=== PATIENT | male | born 1990 | race Two or more races ===

== ENCOUNTER 2018-11-11 19:23 | Emergency (ER) | payer OTHER ==
[2018-11-11 19:32] VITALS: BP 132/94
[2018-11-11] MEDS ORDERED: TDAP ADULT 0.5 ML INJ (BOOSTRIX) IM ONE (19:37)
--- NOTE | 2018-11-11 19:40 | EDPHY ---
H & P Time Seen by Provider: 11/11/18 19:30 HPI/ROS: CHIEF COMPLAINT: Right leg injury HISTORY OF PRESENT ILLNESS: Patient is a 28-year-old male who presents emergency department with a right leg injury yesterday. The patient was working on a compression spring on his car. It struck his lower thigh. He states he had mild bruising and swelling at that location. When he bends his knee he notices a slight bulge. Patient is able to ambulate. He has no numbness or tingling. REVIEW OF SYSTEMS: Negative Past Medical/Surgical History: Noncontributory Smoking Status: Never smoked Physical Exam: General Appearance: Alert and no distress. Head: Pupils equal. Normal. Respiratory: No respiratory distress. Cardiac: regular rate and rhythm. Extremities: Patient has mild bruising at the medial distal thigh. The muscle is soft. There is no signs of compartment syndrome. The patella is nontender. Patient has no bony tenderness palpation. He has full range of motion of his knee. He has no ligamentous instability. Leonard knee rules are negative. Full range of motion, normal appearing. Skin: No rashes or lesions. Neuro: Alert. Normal mood and affect. Constitutional: Initial Vital Signs Temperature (C) 36.6 C 11/11/18 19:31 Heart Rate 82 11/11/18 19:31 Respiratory Rate 16 11/11/18 19:31 Blood Pressure 132/94 H 11/11/18 19:31 O2 Sat (%) 97 11/11/18 19:31 O2 Delivery Mode Room Air Allergies/Adverse Reactions: No Known Allergies Allergy (Verified 11/11/18 19:30) Home Medications: Medication Instructions Recorded NK [No Known Home Meds] 11/11/18 Medical Decision Making ED Course/Re-evaluation: In the emergency department I discussed possible etiologies with the patient. I answered all his questions. I do not feel the patient needs x-ray imaging. I discussed with the patient. He was given warnings prior to leaving. He will return with worsening symptoms. He will continues icing compression. Differential Diagnosis: My differential includes but is not limited to fracture, dislocation, contusion , sprain, DVT, ligamentous injury Departure - Departure Disposition: Home, Routine, Self-Care Clinical Impression: Contusion of leg, right Qualifiers: Encounter type: initial encounter Qualified Code(s): S80.11XA - Contusion of right lower leg, initial encounter Condition: Good Instructions: Contusion in Adults (ED) Additional Instructions: Return with increasing pain, swelling, weakness or any other concerns. Referrals: Itz Stephen MD [Medical Doctor] - As per Instructions
== END 2018-11-11 19:58 | disposition home or self-care (01) ==
DX: S80.11XA Contusion of right lower leg, initial encounter (principal); Y93.H9 Activity, other involving exterior property and land maintenance, building and construction; Y92.810 Car as the place of occurrence of the external cause; Z23 Encounter for immunization